=== PATIENT | male | born 1950 | race Hispanic/Latino ===

== ENCOUNTER → 2017-11-06 | Day surgery (SDC) | payer MEDICARE ==
[2017-11-03 09:35] LABS: BASOPHILS # (AUTO) 0.1 (0.0-0.1); BASOPHILS % 0.6 % (0.0-1.0); EOSINOPHILS # (AUTO) 0.1 (0.0-0.4); EOSINOPHILS % 1.1 % (0.0-6.0); HEMATOCRIT 34.8 % (38.2-49.6); HEMOGLOBIN 12.5 g/dL (14.0-18.0); LYMPHOCYTES # (AUTO) 1.8 (1.0-3.2); LYMPHOCYTES % 22.5 % (18.0-39.1); MEAN CORPUSCULAR HGB CONC 35.9 g/dL (31-35); MEAN CORPUSCULAR VOLUME 91.8 fL (81-99); MONOCYTES # (AUTO) 0.5 (0.2-0.8); MONOCYTES % 6.4 % (4.4-11.3); NEUTROPHILS # (AUTO) 5.4 (2.1-6.9); NEUTROPHILS % 69.1 % (38.7-80.0); PLATELET COUNT 240 x10e3/uL (140-360); RED BLOOD COUNT 3.79 x10e6/uL (4.3-5.7); RED CELL DISTRIBUTION WIDTH 14.3 % (11.7-14.4)
[~2017-11-06] MED LIST: AMLODIPINE BESY10 MG PO; BENAZEPRIL-HCT1 EAC3 PO; MIDAZOLAM HCL 2 MG/2 ML VIAL ONE; OMEPRAZOLE40 MG PO; PROPOFOL IV EMULSION 10 MG/ML 50 ML VIAL ONE; TAMSULOSIN HCL0.4 MG PO
== END | disposition home or self-care (01) ==
LOC: OR 05:56
PROVIDERS: ATTEND Internal Medicine Gastroenterology
DX: R19.5 Other fecal abnormalities (principal); D12.3 Benign neoplasm of transverse colon; D12.8 Benign neoplasm of rectum; K57.30 Diverticulosis of large intestine without perforation or abscess without bleeding; K64.8 Other hemorrhoids; K21.9 Gastro-esophageal reflux disease without esophagitis; I10 Essential (primary) hypertension; F17.210 Nicotine dependence, cigarettes, uncomplicated; Z01.810 Encounter for preprocedural cardiovascular examination; Z01.812 Encounter for preprocedural laboratory examination
CPT/HCPCS: 36415; 45385; 85025; 88305; 93005; J2250; 45380

== ENCOUNTER → 2018-04-20 | Outpatient (CLI) | payer MEDICARE ==
[~2018-04-20] MED LIST changes: +FENTANYL CITRATE/PF 100MCG/2 ML INJ ONE; +LIDOCAINE HCL 1% LOCAL INJ 20 ML VIAL ONE; -PROPOFOL IV EMULSION 10 MG/ML 50 ML VIAL ONE
[2018-04-20 09:10] LABS: INR 1.03; PROTHROMBIN TIME 12.7 seconds (11.9-14.5)
[2018-04-20 09:11] LABS: PARTIAL THROMBOPLASTIN TIME 31.6 seconds (23.8-35.5)
--- NOTE | 2018-04-20 11:15 | Diagnostic Imaging Report ---
PROCEDURE: CHEST XRAY POST PROCEDURE COMPARISON: 09/18/2017. INDICATIONS: STATUS POST LUNG BIOPSY FINDINGS: Small right apical pneumothorax (maximum air gap 15 mm) related to recent CT-guided core biopsy of known a right upper lobe mass. Linear scar in the left mid lung unchanged. Stable cardiomediastinal contour with tortuosity and atherosclerotic calcification of the thoracic aorta. No acute osseous abnormality. CONCLUSION: Small iatrogenic right apical pneumothorax, maximum air gap 15 mm. Dictated by: Alok Dozier M.D. on 04/20/2018 at 11:19 Electronically approved by: Alok Dozier M.D. on 04/20/2018 at 11:19
--- NOTE | 2018-04-20 11:57 | Diagnostic Imaging Report ---
PROCEDURE:CT GUIDED NEEDLE PLACEMENT COMPARISON:CT chest outside facility 10/03/2017. Preprocedure diagnosis: Right upper lobe mass Post procedure diagnosis: Right upper lobe mass Snack Bar Attendant: Alok Dozier M.D. Sedation/anesthesia: Versed 0.5 mg intravenous, fentanyl 25 mcg intravenous. The patient's heart rate and pulse oximetry were continuously monitored by the interventional radiology nurse. Blood pressure was monitored at 5 minute intervals. Additional medications: Lidocaine 1% for local anesthesia Estimated blood loss: Less than 10 cc Blood products administered: None Specimens: Core biopsy specimens x10 Implants/grafts: [employer] pleural plug device Complications: Small iatrogenic pneumothorax Condition at completion of procedure: Stable Disposition: Radiology holding area Procedure in detail: Informed consent for the procedure was obtained from the patient and documented in the medical record after discussion of risks and benefits. The patient was placed in the prone position on the CT couch. A marker grid was placed over the right upper back. Limited CT examination showed a suitable percutaneous approach to the right upper lobe mass lesion. The overlying skin was prepped and draped in the standard sterile fashion. 1% lidocaine was infiltrated into the skin and subcutaneous tissues for local anesthesia. Then under intermittent CT guidance, a 16 gauge needle guide was advanced to the periphery of the mass lesion. Subsequently, a total of 10 core biopsy specimens were obtained using an 18 gauge, 2 cm throw core biopsy apparatus. Specimens were submitted to on-site pathology personnel. At the conclusion of sampling a pleural plug device was deployed through the needle guide as it was removed. Post procedure CT scan of the chest showed a small iatrogenic right pneumothorax with maximum air gap of 15 mm. The patient remained hemodynamically stable and asymptomatic with adequate oxygen saturation throughout the immediate post procedure period. CONCLUSION: Successful CT guided core biopsies of a right upper lobe mass lesion. Small iatrogenic pneumothorax will be followed by serial chest radiographs. Dictated by: Alok Dozier M.D. on 04/20/2018 at 12:00 Electronically approved by: Alok Dozier M.D. on 04/20/2018 at 12:00
--- NOTE | 2018-04-20 13:23 | Diagnostic Imaging Report ---
PROCEDURE:X-RAY CHEST, ONE VIEW COMPARISON:04/20/2018 1107. INDICATIONS:STATUS POST LUNG BIOPSY FINDINGS: See conclusion CONCLUSION: Stable small right apical pneumothorax status post lung biopsy, with air gap 15 mm. Right upper lobe mass and left upper lobe linear scar are unchanged. Dictated by: Alok Dozier M.D. on 04/20/2018 at 13:26 Electronically approved by: Alok Dozier M.D. on 04/20/2018 at 13:26
== END ==
LOC: CT 08:22
PROVIDERS: ATTEND Family Medicine
DX: R91.8 Other nonspecific abnormal finding of lung field (principal)
CPT/HCPCS: 32405; 36415; 71045 ×2; 77012; 85049; 85610; 85730; 88305; 88333; J2001; J2250